=== PATIENT | male | born 1965 | race Caucasian/White ===

== ENCOUNTER → 2019-01-06 | Outpatient (CLI) | payer BC ==
--- NOTE | 2019-01-06 20:10 | EST ---
EXERCISE STRESS AGE: 53 SEX: Male HT: 71" WT: 190 pounds PROTOCOL: Anthony STAGE: 3 DURATION OF EXERCISE: 10:00 HEART RATE REST: 69 BLOOD PRESSURE REST: 125/92 MAXIMUM HEART RATE ACHIEVED: 171 MAXIMUM BLOOD PRESSURE: 167/92 85% MPHR: 141 100% MPHR: 166 METS: 11.7 INDICATIONS: Chest pain. CLINICAL INFORMATION: Baseline heart rate 69 beats per minute. Baseline blood pressure 125/92 mmHg. Baseline 12-lead ECG shows normal sinus rhythm with normal cardiac intervals. Patient exercised on the Anthony protocol for 10 minutes. He complained of chest heaviness during the stress test. Peak heart rate 170 beats per minute. Normal blood pressure response to exercise. There was no ECG evidence for ischemia. No arrhythmias were noted. MMODL / IJN: [id number] /
== END | disposition home or self-care (01) ==
LOC: RADNMMAIN 10:34
PROVIDERS: ATTEND Family Medicine
DX: R07.9 Chest pain, unspecified (principal); R03.0 Elevated blood-pressure reading, without diagnosis of hypertension
CPT/HCPCS: 93017